=== PATIENT | female | born 1975 | race Hispanic/Latino ===

== ENCOUNTER 2019-12-21 15:16 | Outpatient (CLI) | payer OTHER ==
--- NOTE | 2019-12-21 15:50 | ULT ---
Exam: Pelvic ultrasound HISTORY: Pelvic pain COMPARISON: None TECHNIQUE: Multiple grayscale and color Doppler images were obtained in a transabdominal and transvag inal pelvic ultrasound. Spectral analysis of the Doppler waveforms of the ovaries were performed. FINDINGS: CERVIX: Normal in appearance. UTERUS: There is a heterogeneous masslike structure seen at the uterine fundus measuring 18 mm in max imal dimensions which probably represents a uterine fibroid. ENDOMETRIAL STRIPE: 20 mm which is thickened. No fluid or fluid collection is seen in the endometrial canal. No free fluid is present. RIGHT OVARY: Normal flow, without focal mass. LEFT OVARY: Normal flow, without focal mass. IMPRESSION: 1. Thickening of the endometrial stripe which measures 20 mm. No fluid or fluid collection is seen in the endometrial canal. 2. Probable fibroid at the uterine fundus.
== END 2019-12-21 15:17 | disposition home or self-care (01) ==
LOC: BICULT 15:16
PROVIDERS: ATTEND Family Medicine
DX: R10.2 Pelvic and perineal pain (principal); Z87.42 Personal history of other diseases of the female genital tract; R93.89 Abnormal findings on diagnostic imaging of other specified body structures
CPT/HCPCS: 76856